=== PATIENT | male | born 1990 | race Hispanic/Latino ===

== ENCOUNTER 2023-02-12 17:16 | Emergency (ER) | payer OTHER, SELFPAY | END 2023-02-12 19:32 | disposition home or self-care (01) | LOC: CSHERS 17:16 | DX: S40.012A Contusion of left shoulder, initial encounter (principal); S70.02XA Contusion of left hip, initial encounter; V83.9XXA Unspecified occupant of special industrial vehicle injured in nontraffic accident, initial encounter | CPT/HCPCS: 71045; 72170 ==

== ENCOUNTER 2024-12-05 20:09 | Emergency (ER) | payer BC, SELFPAY ==
[2024-12-05] MEDS ORDERED: Boostrix 0.5 ML (Tdap) VIAL (>/=7 yrs of age) ONE (20:29)
== END 2024-12-05 21:25 | disposition home or self-care (01) ==
LOC: CSHERS 20:09
DX: S61.216A Laceration without foreign body of right little finger without damage to nail, initial encounter (principal); F17.210 Nicotine dependence, cigarettes, uncomplicated; W26.8XXA Contact with other sharp object(s), not elsewhere classified, initial encounter; Y93.89 Activity, other specified; Y92.69 Other specified industrial and construction area as the place of occurrence of the external cause; Z23 Encounter for immunization
CPT/HCPCS: 12001; 90471; 90715

== ENCOUNTER 2024-12-20 11:18 | Emergency (ER) | payer BC | END 2024-12-20 12:22 | disposition home or self-care (01) | LOC: CSHERS 11:18 | DX: S61.216D Laceration without foreign body of right little finger without damage to nail, subsequent encounter (principal); F17.210 Nicotine dependence, cigarettes, uncomplicated; Z48.02 Encounter for removal of sutures; W26.8XXD Contact with other sharp object(s), not elsewhere classified, subsequent encounter ==